=== PATIENT | male | born 1980 | race Caucasian/White ===

== ENCOUNTER 2017-04-22 16:18 | Emergency (ER) | payer MEDICAID ==
[~2017-04-22] VITALS: Ht 167.6 cm; Wt 118.8 kg
[2017-04-22 16:32] VITALS: BP 115/62
[2017-04-22] MEDS ORDERED: KETOROLAC 60 MG/2 ML VIAL IM ONE (17:50)
[2017-04-22 18:12] VITALS: BP 115/62
--- NOTE | 2017-04-22 18:12 | NUR ---
Patient discharged with v/s stable. Written and verbal after care instructions given and explained. Patient alert, oriented and verbalized understanding of instructions. Ambulatory with steady gait. All questions addressed prior to discharge. ID band removed. Patient advised to follow up with PMD. Rx of NAPROSYN given. Patient educated on indication of medication including possible reaction and side effects. Opportunity to ask questions provided and answered. SPOUSE PRESENT PT'S RIDE.
== END 2017-04-22 18:12 | disposition home or self-care (01) ==
LOC: MED 16:18
DX: M54.5 Low back pain (principal)
CPT/HCPCS: 96372; 99283; J1885

== ENCOUNTER 2018-06-21 14:55 | Emergency (ER) | payer MEDICAID ==
[~2018-06-21] VITALS: Ht 165.1 cm; Wt 123.8 kg
[2018-06-21 15:04] VITALS: BP 118/69
--- NOTE | 2018-06-21 15:10 | NUR ---
PT AMB TO RESTROOM FOR URINE SAMPLE, WILL BE SENT TO LOBBY AFTER.
--- NOTE | 2018-06-21 15:52 | NUR ---
PT AMBULATED STEADILY TO BED 11
--- NOTE | 2018-06-21 16:00 | NUR ---
BIB SELF. PATIENT PRESENTS TO ED WITH LOWER ABD PAIN THAT STARTED 7 DAYS AGO. PT STATES HER LAST BM WAS THIS MORNING, FORMED. DENIES N/V/D; SKIN IS PINK/WARM/DRY; AAOX4 WITH EVEN AND STEADY GAIT; LUNGS CLEAR BL; HR EVEN AND REGULAR; PT DENIES ANY FEVER, CP, SOB, OR COUGH AT THIS TIME; PATIENT STATES PAIN OF 10/10 AT THIS TIME; VSS; PATIENT POSITIONED FOR COMFORT; HOB ELEVATED; BEDRAILS UP X2; BED DOWN. ER MD MADE AWARE OF PT STATUS.
[2018-06-21] MEDS ORDERED: NACL 0.9% 1,000 ML IV SCH (16:19)
[2018-06-21] MEDS ORDERED: ONDANSETRON 4 MG/2 ML VIAL IVP ONE (16:20)
[2018-06-21] MEDS ORDERED: MORPHINE SULFATE 4 MG/ML SYR IVP ONE (16:20)
[2018-06-21 17:32] LABS: BASOPHILS # (AUTO) 0.1 K/uL (0.00-0.22); BASOPHILS % (AUTO) 0.6 % (0.0-2.0); EOSINOPHILS # (AUTO) 0.5 K/uL (0-0.4); EOSINOPHILS % (AUTO) 3.3 % (0.0-4.0); HEMATOCRIT 42.8 % (36-48); HEMOGLOBIN 14.1 g/dL (12.0-16.0); LYMPHOCYTES % (AUTO) 27.1 % (20.5-51.1); MEAN CORPUSCULAR HEMOGLOBIN 30 pg (27-31); MEAN CORPUSCULAR HGB CONC 33 g/dL (33-37); MONOCYTES % (AUTO) 6.9 % (1.7-9.3); NEUTROPHILS # (AUTO) 9.1 K/uL (1.8-7.7); NEUTROPHILS % (AUTO) 62.1 % (42.2-75.2); PLATELET COUNT (AUTO) 256 K/uL (140-450); RED BLOOD CELL COUNT(AUTO) 4.75 MIL/uL (4.20-5.40); RED CELL DISTRIBUTION WIDTH 13.3 % (11.6-13.7); WHITE BLOOD COUNT (AUTO) 14.7 K/uL (4.8-10.8)
[2018-06-21 17:47] LABS: ALBUMIN 3.1 g/dL (3.4-5.0); CARBON DIOXIDE 27.9 mmol/L (21-32); POTASSIUM 3.9 mmol/L (3.5-5.1); TOTAL BILIRUBIN 0.3 mg/dL (0.0-1.0)
[2018-06-21 17:48] LABS: APPEARANCE,URINE CLEAR (CLEAR)
[2018-06-21 17:49] LABS: BILIRUBIN,URINE NEGATIVE (NEGATIVE); BLOOD, URINE 1+ (NEGATIVE); COLOR,URINE STRAW (YELLOW); LEUKOCYTE ESTERASE ,URINE NEGATIVE (NEGATIVE); NITRITE, URINE NEGATIVE (NEGATIVE); UGLUCOSE NEGATIVE (NEGATIVE)
[2018-06-21 18:20] LABS: RBC,URINE 0-5 (RARE) /HPF (0-5); WBC,URINE NONE SEEN /HPF (0-5)
--- NOTE | 2018-06-21 19:12 | NUR ---
RETURNED FROM XRAY VIA
--- NOTE | 2018-06-21 19:25 | NUR ---
REPORT RECIEVED FROM JAI BLEVINS
[2018-06-21 20:51] VITALS: BP 113/69
== END 2018-06-21 20:51 | disposition home or self-care (01) ==
LOC: EDSEX 14:55 → MED 14:55
DX: R10.30 Lower abdominal pain, unspecified (principal); Z90.49 Acquired absence of other specified parts of digestive tract; Z90.89 Acquired absence of other organs
CPT/HCPCS: 36415; 74176; 80053; 81001; 81025; 83690; 85025; 96374; 96375; 99285; J2270; J2405; J7030

== ENCOUNTER 2018-06-29 18:21 | Emergency (ER) | payer MEDICAID ==
[~2018-06-29] VITALS: Ht 167.6 cm; Wt 124.7 kg
[2018-06-29 18:32] VITALS: BP 123/82
[2018-06-29] MEDS ORDERED: KETOROLAC 30 MG/ML VIAL IVP ONE (19:15)
[2018-06-29 19:38] LABS: BASOPHILS # (AUTO) 0.1 K/uL (0.00-0.22); BASOPHILS % (AUTO) 0.7 % (0.0-2.0); EOSINOPHILS # (AUTO) 0.4 K/uL (0-0.4); EOSINOPHILS % (AUTO) 2.8 % (0.0-4.0); HEMATOCRIT 46.2 % (36-48); HEMOGLOBIN 15.4 g/dL (12.0-16.0); LYMPHOCYTES # (AUTO) 4.2 K/uL (2.5-16.5); LYMPHOCYTES % (AUTO) 26.6 % (20.5-51.1); MEAN CORPUSCULAR HEMOGLOBIN 30 pg (27-31); MEAN CORPUSCULAR HGB CONC 33 g/dL (33-37); MEAN CORPUSCULAR VOLUME 89.1 fL (80-94); MONOCYTES # (AUTO) 1.1 K/uL (0.8-1.0); MONOCYTES % (AUTO) 6.8 % (1.7-9.3); NEUTROPHILS % (AUTO) 63.1 % (42.2-75.2); PLATELET COUNT (AUTO) 346 K/uL (140-450); RED BLOOD CELL COUNT(AUTO) 5.19 MIL/uL (4.20-5.40); RED CELL DISTRIBUTION WIDTH 13.2 % (11.6-13.7); WHITE BLOOD COUNT (AUTO) 15.9 K/uL (4.8-10.8)
[2018-06-29 19:55] LABS: ANION GAP 10.6 (8-16); CARBON DIOXIDE 28.4 mmol/L (21-32); CREATININE 0.8 mg/dL (0.6-1.3)
[2018-06-29 20:03] LABS: ALBUMIN 3.6 g/dL (3.4-5.0); TOTAL BILIRUBIN 0.4 mg/dL (0.0-1.0)
[2018-06-29 20:43] LABS: APPEARANCE,URINE CLEAR (CLEAR); COLOR,URINE YELLOW (YELLOW)
[2018-06-29 20:44] LABS: BILIRUBIN,URINE NEGATIVE (NEGATIVE); BLOOD, URINE NEGATIVE (NEGATIVE); LEUKOCYTE ESTERASE ,URINE NEGATIVE (NEGATIVE); NITRITE, URINE NEGATIVE (NEGATIVE); UGLUCOSE NEGATIVE (NEGATIVE)
[2018-06-29 21:23] VITALS: BP 110/82
== END 2018-06-29 21:19 | disposition home or self-care (01) ==
LOC: MED 18:21
DX: R10.30 Lower abdominal pain, unspecified (principal); Z90.89 Acquired absence of other organs
CPT/HCPCS: 36415; 76856; 80053; 81003; 81025; 83690; 85025; 96374; 99285; J1885; Q0092

== ENCOUNTER 2020-05-19 16:13 | Inpatient (IN) | payer MEDICAID, SELFPAY ==
[~2020-05-19] VITALS: Ht 167.6 cm; Wt 116.1 kg
[2020-05-19 16:15] VITALS: BP 146/81
--- NOTE | 2020-05-19 16:27 | NUR ---
PT AMB TO BED 4.
--- NOTE | 2020-05-19 16:30 | NUR ---
39 YEAR OLD FEMALE COMPLAINS OF NAUSEA, VOMITTING, AND DIARRHEA THAT STARTED TWO DAYS AGO. PT DENIES ANY NAUSEA AT THIS TIME, BUT STATES SHE WAS IN THE MORNING. PT AOX4, BREATHING EVEN AND UNLABORED, SKIN WARM AND DRY. BED IN LOWEST POSITION, LOCKED, BED RAIL UPX1. PMH - DENIES ALLERGIES - NKA
[2020-05-19] MEDS ORDERED: NACL 0.9% 1,000 ML IV ONE ×2 (16:35→19:10)
[2020-05-19 17:00] LABS: BASOPHILS % (AUTO) 0.2 % (0.0-2.0); HEMATOCRIT 41.6 % (36-48); HEMOGLOBIN 14.1 g/dL (12.0-16.0); LYMPHOCYTES # (AUTO) 1.2 K/uL (2.5-16.5); LYMPHOCYTES % (AUTO) 7.3 % (20.5-51.1); MEAN CORPUSCULAR HEMOGLOBIN 30 pg (27-31); MEAN CORPUSCULAR HGB CONC 34 g/dL (33-37); MEAN CORPUSCULAR VOLUME 89.8 fL (80-94); MONOCYTES # (AUTO) 1.2 K/uL (0.8-1.0); MONOCYTES % (AUTO) 6.9 % (1.7-9.3); NEUTROPHILS # (AUTO) 14.6 K/uL (1.8-7.7); NEUTROPHILS % (AUTO) 85.6 % (42.2-75.2); PLATELET COUNT (AUTO) 278 K/uL (140-450); RED BLOOD CELL COUNT(AUTO) 4.63 MIL/uL (4.20-5.40); RED CELL DISTRIBUTION WIDTH 13.5 % (11.6-13.7); WHITE BLOOD COUNT (AUTO) 17.1 K/uL (4.8-10.8)
--- NOTE | 2020-05-19 17:04 | NUR ---
COVID SWAB SENT TO LAB
[2020-05-19 17:34] LABS: ALBUMIN 3.4 g/dL (3.4-5.0); ANION GAP 16.3 (8-16); CARBON DIOXIDE 21.5 mmol/L (21-32); POTASSIUM 3.8 mmol/L (3.5-5.1); TOTAL BILIRUBIN 0.6 mg/dL (0.0-1.0)
[2020-05-19 17:46] LABS: BILIRUBIN,URINE NEGATIVE (NEGATIVE); BLOOD, URINE 3+ (NEGATIVE); COLOR,URINE YELLOW (YELLOW); LEUKOCYTE ESTERASE ,URINE TRACE (NEGATIVE); NITRITE, URINE NEGATIVE (NEGATIVE); UGLUCOSE NEGATIVE (NEGATIVE)
[2020-05-19 17:52] LABS: APPEARANCE,URINE CLOUDY (CLEAR)
[2020-05-19 18:12] LABS: RBC,URINE 0-5 /HPF (0-5)
[2020-05-19 18:13] LABS: URINE AMORPHOUS URATE 3+ /HPF (None Seen); WBC,URINE NONE SEEN /HPF (0-5)
--- NOTE | 2020-05-19 18:53 | NUR ---
PT ALERT AND AWAKE, BREATHING EVEN AND UNLABORED. NO DISTRESS NOTED.
[2020-05-19] MEDS ORDERED: PIPERACILLIN/TAZOBACTAM 3.375 GM in DEXTROSE 5% 50 ML IV ONE (19:10)
--- NOTE | 2020-05-19 19:27 | NUR ---
REPORT GIVEN TO TONIA VERGARA, TRANSFER OF CARE AT THIS TIME
--- NOTE | 2020-05-19 19:28 | NUR ---
RECEIVED REPORT FROM JAK VERGARA
[2020-05-19] MEDS ORDERED: KETOROLAC 30 MG/ML VIAL ONE (20:59)
[2020-05-19] MEDS ORDERED: PIPERACILLIN/TAZOBACTAM 3.375 GM VIAL IV ONE (21:20)
[2020-05-20] MEDS ORDERED: HYDROcodone/APAP 5/325 MG 1 TAB TAB ONE (04:30)
--- NOTE | 2020-05-20 05:30 | NUR ---
Partschannel NUTRITION COUNSELOR RETURNED FROM DOWNTIME AT THIS TIME. PLEASE SEE OTHER DOCUMENTATION.
--- NOTE | 2020-05-20 07:29 | NUR ---
ENDORSED TO DAY SHIFT NURSE FOR CONTINUITY OF CARE.
--- NOTE | 2020-05-20 07:30 | NUR ---
Received bedside report from pm nurse [place]. Pt ambulating to restroom with steady gait, able to maneuver IV pole with good safety awareness, no signs of distress. Right hand IV 22G intact with ongoing NS @ 80ml/hr.
[2020-05-20 08:00] VITALS: BP 96/48
[2020-05-20] MEDS ORDERED: HYDROcodone/APAP 5/325 MG 1 TAB TAB PO PRN (08:45)
[2020-05-20] MEDS ORDERED: ACETAMINOPHEN 325 MG TAB PO PRN (08:50)
[2020-05-20] MEDS ORDERED: ONDANSETRON 4 MG/2 ML VIAL IM/IVP PRN (08:50)
[2020-05-20] MEDS ORDERED: DOCUSATE SODIUM 100 MG GELCAP PO PRN (08:50)
[2020-05-20] MEDS ORDERED: POTASSIUM CHLORIDE 10 MEQ TABER PO PRN (08:50)
[2020-05-20] MEDS ORDERED: ZOLPIDEM 5 MG TAB PO PRN (08:50)
[2020-05-20] MEDS ORDERED: guaiFENesin DM 200/20 MG-10 ML 10 ML UDC PO PRN (08:50)
--- NOTE | 2020-05-20 08:56 | NUR ---
Clarified with [facility] retail pharmacy technician, that Zosyn was dispensed last night @ 2200 in ED. ED staff Fritz notified.
[2020-05-20 09:32] LABS: BASOPHILS % (AUTO) 0.2 % (0.0-2.0); EOSINOPHILS % (AUTO) 0.2 % (0.0-4.0); HEMOGLOBIN 13.4 g/dL (12.0-16.0); LYMPHOCYTES # (AUTO) 1.8 K/uL (2.5-16.5); LYMPHOCYTES % (AUTO) 12.1 % (20.5-51.1); MEAN CORPUSCULAR HEMOGLOBIN 30 pg (27-31); MEAN CORPUSCULAR HGB CONC 34 g/dL (33-37); MONOCYTES # (AUTO) 1.4 K/uL (0.8-1.0); MONOCYTES % (AUTO) 8.9 % (1.7-9.3); NEUTROPHILS % (AUTO) 78.6 % (42.2-75.2); PLATELET COUNT (AUTO) 258 K/uL (140-450); RED BLOOD CELL COUNT(AUTO) 4.44 MIL/uL (4.20-5.40); RED CELL DISTRIBUTION WIDTH 13.5 % (11.6-13.7); WHITE BLOOD COUNT (AUTO) 15.2 K/uL (4.8-10.8)
[2020-05-20] MEDS: PANTOPRAZOLE 40 MG TABEC PO SCH (09:42)
--- NOTE | 2020-05-20 10:17 | NUR ---
PATIENT HAS BEEN SCREENED AND CATEGORIZED MODERATE NUTRITION RISK. PATIENT WILL BE SEEN WITHIN 3-5 DAYS OF ADMISSION. 05/22/20 05/24/[address]
[2020-05-20 10:33] LABS: ALBUMIN 2.8 g/dL (3.4-5.0); ANION GAP 13.8 (8-16); CARBON DIOXIDE 22.7 mmol/L (21-32); CREATININE 0.8 mg/dL (0.6-1.3); POTASSIUM 3.5 mmol/L (3.5-5.1); TOTAL BILIRUBIN 0.5 mg/dL (0.0-1.0)
[2020-05-20 10:45] LABS: CHOL/HDL RATIO 3.1 (1-4.5); MAGNESIUM 1.8 mg/dL (1.8-2.4); PHOSPHORUS 2.4 mg/dL (2.5-4.9)
[2020-05-20 10:46] LABS: FREE T4 (FREE THYROXINE) 1.2 ng/dL (0.76-1.46); THYROID STIMULATING HORMONE 2.59 uIU/mL (0.34-3.74)
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
--- NOTE | 2020-05-20 11:36 | NUR ---
DC PLANNIN YRS OLD FEMALE PATIENT WAS ADMITTED FROM HOME WITH A DX OF CHEST PAIN . PATIENT HAS NO MEDICAL HISTORY. CXR SHOWED NORMAL. CT ABD/PELVIS SHOWED PROMINENT MESENTERIC LYMPH NODES WHICH IS LIKELY RELATED TO INFECTIOUS PROCESS. STARTED IVF, IV ABX ZOSYN. RAPID COVID TEST NEGATIVE. DC PLANING TO GO HOME WHEN STABLE CM TO FOLLOW.
[2020-05-20 12:00] VITALS: BP 134/63
[2020-05-20 12:05] LABS: ANION GAP 13.3 (8-16); CARBON DIOXIDE 21.3 mmol/L (21-32); CREATININE 0.8 mg/dL (0.6-1.3); POTASSIUM 3.6 mmol/L (3.5-5.1)
[2020-05-20] MEDS: NACL 0.9% 1,000 ML IV SCH (12:34)
[2020-05-20] MEDS: HYDROcodone/APAP 7.5/325 MG 1 TAB PO PRN ×2 (13:32→19:51)
[2020-05-20] MEDS: PIPERACILLIN/TAZOBACTAM 3.375 GM in DEXTROSE 5% 50 ML IV SCH ×2 (13:32→20:17)
[2020-05-20 16:00] VITALS: BP 104/54
--- NOTE | 2020-05-20 19:15 | NUR ---
RECEIVED BEDSIDE REPORT FROM DAY SHIFT NURSE. PT IN BED RESTING. PT AAOX4, AMBULATORY, AND ABLE TO MAKE NEEDS KNOWN. RESPIRATIONS EVEN AND UNLABORED TO ROOM AIR. SKIN IS WARM, DRY, AND INTACT. ABDOMEN IS SOFT TO TOUCH. IV ACCESS ON LEFT HAND G22 PATENT AND INTACT. IVF INFUSING WELL. PT VERBALIZED TOLERABLE PAIN LEVEL AT THIS TIME. NO REQUESTS MADE. POC DISCUSSED. PT VERBALIZED UNDERSTANDING. SAFETY MEASURES IN PLACE. CALL LIGHT WITHIN REACH. WILL CONTINUE TO MONITOR.
--- NOTE | 2020-05-20 19:51 | NUR ---
PT VERBALIZED ABDOMINAL PAIN 04/14. PRN PAIN MEDICATION GIVEN ORDERED. WILL CONTINUE TO MONITOR.
[2020-05-20 20:00] VITALS: BP 97/46
--- NOTE | 2020-05-20 20:17 | NUR ---
VITAL SIGNS STABLE. SCHEDULED MEDS GIVEN. PT VERBALIZED TOLERABLE PAIN AT THIS TIME. NO REQUESTS MADE. CALL LIGHT WITHIN REACH. WILL CONTINUE TO MONITOR.
[2020-05-20 20:56] LABS: BARBITURATE, URINE NEGATIVE ng/ml (NEG <=200); BENZODIAZEPINE, URINE NEGATIVE ng/mL (NEG <=200); CANNABINOID, URINE NEGATIVE ng/mL (NEG <=50); COCAINE, URINE NEGATIVE ng/mL (NEG <=300); OPIATE, URINE NEGATIVE ng/mL (NEG <=2000); PHENCYCLIDINE SCREEN,URINE NEGATIVE ng/mL (NEG <=25)
--- NOTE | 2020-05-20 22:05 | NUR ---
ROUNDS MADE. PT IN BED WATCHING TV. APPLE JUICE PROVIDED PER PT REQUEST. PT DENIES ANY PAIN OR DISCOMFORT AT THIS TIME. PT KEPT SAFE AND COMFORTABLE. CALL LIGHT WITHIN REACH. WILL CONTINUE TO MONITOR.
[2020-05-21] VITALS: BP 108/60
--- NOTE | 2020-05-21 00:08 | NUR ---
VITAL SIGNS STABLE. PT NOT IN DISTRESS. DENIES ANY PAIN OR DISCOMFORT AT THIS TIME. NO REQUESTS MADE. PT KEPT COMFORTABLE. SAFETY MEASURES IN PLACE. CALL LIGHT WITHIN REACH. WILL CONTINUE TO MONITOR.
[2020-05-21] MEDS: NACL 0.9% 1,000 ML IV SCH (00:20)
--- NOTE | 2020-05-21 01:40 | NUR ---
PT JUST GOT OUT OF RESTROOM. VERBALIZED PRESENCE OF DIARRHEA STILL. NEW IV BAG HUNG. PT NOT IN PAIN OF THIS MOMENT. PT KEPT COMFORTABLE. NO REQUESTS MADE. CALL LIGHT WITHIN REACH. WILL CONTINUE TO MONITOR.
[2020-05-21 04:00] VITALS: BP 103/64
--- NOTE | 2020-05-21 04:07 | NUR ---
VITAL SIGNS TAKEN. PT IN BED RESTING. DENIES ANY PAIN OR DISCOMFORT. PT NOT IN DISTRESS. NO REQUESTS MADE. IVF INFUSING WELL. PT KEPT COMFORTABLE. SAFETY MEASURES IN PLACE. CALL LIGHT WITHIN REACH. WILL CONTINUE TO MONITOR.
[2020-05-21] MEDS: PIPERACILLIN/TAZOBACTAM 3.375 GM in DEXTROSE 5% 50 ML IV SCH (04:59)
[2020-05-21 06:56] LABS: BASOPHILS % (AUTO) 0.1 % (0.0-2.0); EOSINOPHILS # (AUTO) 0.2 K/uL (0-0.4); EOSINOPHILS % (AUTO) 2.1 % (0.0-4.0); HEMATOCRIT 37.2 % (36-48); HEMOGLOBIN 12.5 g/dL (12.0-16.0); LYMPHOCYTES # (AUTO) 2.4 K/uL (2.5-16.5); LYMPHOCYTES % (AUTO) 20.5 % (20.5-51.1); MEAN CORPUSCULAR HEMOGLOBIN 30 pg (27-31); MEAN CORPUSCULAR HGB CONC 34 g/dL (33-37); MEAN CORPUSCULAR VOLUME 89.7 fL (80-94); MONOCYTES # (AUTO) 1.2 K/uL (0.8-1.0); MONOCYTES % (AUTO) 10.4 % (1.7-9.3); NEUTROPHILS # (AUTO) 7.8 K/uL (1.8-7.7); NEUTROPHILS % (AUTO) 66.9 % (42.2-75.2); PLATELET COUNT (AUTO) 250 K/uL (140-450); RED BLOOD CELL COUNT(AUTO) 4.15 MIL/uL (4.20-5.40); RED CELL DISTRIBUTION WIDTH 13.3 % (11.6-13.7); WHITE BLOOD COUNT (AUTO) 11.6 K/uL (4.8-10.8)
[2020-05-21 07:08] LABS: ANION GAP 13.2 (8-16); CARBON DIOXIDE 21.5 mmol/L (21-32); CREATININE 0.7 mg/dL (0.6-1.3); POTASSIUM 3.7 mmol/L (3.5-5.1)
--- NOTE | 2020-05-21 07:11 | NUR ---
ENDORSED TO DAY SHIFT NURSE FOR CONTINUITY OF CARE.
--- NOTE | 2020-05-21 07:12 | NUR ---
RECEIVED REPORT FROM ENVIRONMENTAL SERVICES SUPERVISOR NURSE FOR CONTINUITY OF CARE. PATIENT RESTING IN BED, AWAKE, AAOX 4, DENIES PAIN AT THIS TIME. RESPIRATORY EVEN AND UNLABORED. SKIN INTACT,WARM AND DRY, IV SITE LEFT HAND 22 G, INFUSING NS @80 CC/HR. CONTACT ISOLATION FOR PENDING C DIFF. PLAN OF CARE DISCUSSED. SAFETY MEASURES IN PLACE, WILL CONTINUE TO MONITOR.
[2020-05-21 08:00] VITALS: BP 110/56
[2020-05-21 08:08] LABS: T4 (THYROXINE) 7.5 ug/dL (4.5-12.0)
[2020-05-21] MEDS: PANTOPRAZOLE 40 MG TABEC PO SCH (08:17)
--- NOTE | 2020-05-21 08:21 | NUR ---
SCHEDULED MORNING MEDICATION ADMINISTERED, EDUCATION PROVIDED, PATIENT TOLERATED WELL. PATIENT DENIED PAIN. SAFETY MEASURES IN PLACE, WILL CONTINUE TO MONITOR.
[2020-05-21] MEDS ORDERED: METR250T2 PO ×2 (10:45→11:04)
== END 2020-05-21 13:15 | disposition home or self-care (01) | DRG 720 ==
LOC: MED 16:13 → MTU 20:55
PROVIDERS: ADMIT Family Medicine; ATTEND Family Medicine
DX: A41.9 Sepsis, unspecified organism (principal); K52.9 Noninfective gastroenteritis and colitis, unspecified; R31.9 Hematuria, unspecified; K43.9 Ventral hernia without obstruction or gangrene; E66.9 Obesity, unspecified; K29.70 Gastritis, unspecified, without bleeding; K76.0 Fatty (change of) liver, not elsewhere classified; F43.9 Reaction to severe stress, unspecified; Z20.828 Contact with and (suspected) exposure to other viral communicable diseases; Z68.41 Body mass index [BMI] 40.0-44.9, adult
CPT/HCPCS: 36415; 71045; 76770; 80048; 80053; 80305; 81001; 81025; 82150; 83036; 83605; 83690; 83735; 83880; 84100; 84436; 84439; 84443; 84479; 84484; 85025; 85610; 85730; 87040; 87045; 87070; 87081; 87086; 96360; 99285; J1885; J2543; J7030; J7060; Q0092

== ENCOUNTER 2021-01-06 08:04 | Emergency (ER) | payer MEDICAID, SELFPAY ==
[~2021-01-06] VITALS: Ht 160 cm; Wt 122.0 kg
[~2021-01-06 08:04] MED LIST: METR-520 PO
[2021-01-06 08:07] VITALS: BP 148/83
--- NOTE | 2021-01-06 08:09 | NUR ---
PATIENT AMBULATED TO BED 12 WITH STEADY GAIT
--- NOTE | 2021-01-06 08:20 | NUR ---
40 Y/O F BIB SELF FROM HOME, PATIENT PRESENTS TO ED WITH L ANKLE PAIN AFTER SHE FELL 3 DAYS AGO. PT DENIES ANY HEAD INJURY DURING FALL. PT STATES PAIN INCREASES WHEN SHE SITS AND WALKS. DENIES N/V/D; SKIN IS PINK/WARM/DRY; AAOX4 WITH EVEN AND STEADY GAIT; LUNGS CLEAR BL; HR EVEN AND REGULAR; PT DENIES ANY FEVER, CP, SOB, OR COUGH AT THIS TIME; PATIENT STATES PAIN OF 7/10 AT THIS TIME; VSS; PATIENT POSITIONED FOR COMFORT; HOB ELEVATED; BEDRAILS UP X2; BED DOWN. ER MD MADE AWARE OF PT STATUS. PMH: NONE NKA MEDS: NONE
--- NOTE | 2021-01-06 08:25 | NUR ---
XRAY AT BEDSIDE.
[2021-01-06] MEDS: IBUPROFEN 800 MG TAB PO ONE (08:30)
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
[2021-01-06 09:23] VITALS: BP 148/83
--- NOTE | 2021-01-06 09:24 | NUR ---
Patient discharged with v/s stable. Written and verbal after care instructions given and explained. Patient verbalized understanding. Ambulatory with steady gait. All questions addressed prior to discharge. Advised to follow up with PMD. AMBULATORY WITH CRUTCHES
== END 2021-01-06 09:24 | disposition home or self-care (01) ==
LOC: MED 08:04
DX: S93.401A Sprain of unspecified ligament of right ankle, initial encounter (principal); Z79.899 Other long term (current) drug therapy; X58.XXXA Exposure to other specified factors, initial encounter; Y93.89 Activity, other specified; Y92.89 Other specified places as the place of occurrence of the external cause; Y99.8 Other external cause status
CPT/HCPCS: 73590; 73610; 73630; 99284

== ENCOUNTER 2021-03-07 15:31 | Emergency (ER) | payer MEDICAID ==
[~2021-03-07] VITALS: Ht 162.6 cm; Wt 122.0 kg
[2021-03-07 15:41] VITALS: BP 121/79
--- NOTE | 2021-03-07 15:45 | NUR ---
Patient ambulated to bed 11. RN evaluating the patient at bedside.
--- NOTE | 2021-03-07 15:47 | NUR ---
SHIKHA Bolaños is evaluating the patient at bedside.
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
[2021-03-07] MEDS ORDERED: KETOROLAC 30 MG/ML VIAL IM ONE (15:55)
[2021-03-07] MEDS ORDERED: IBUP-1842 PO (16:50)
--- NOTE | 2021-03-07 17:42 | NUR ---
PLACE LEFT WRIST IMMOBILIZER ON PATIENT. PATIENT TOLERATED WELL.
[2021-03-07 17:48] VITALS: BP 121/79
== END 2021-03-07 17:48 | disposition home or self-care (01) ==
LOC: MED 15:31
DX: S69.92XA Unspecified injury of left wrist, hand and finger(s), initial encounter (principal); Z79.899 Other long term (current) drug therapy; Z90.49 Acquired absence of other specified parts of digestive tract; Z98.890 Other specified postprocedural states; X58.XXXA Exposure to other specified factors, initial encounter; Y93.89 Activity, other specified; Y92.89 Other specified places as the place of occurrence of the external cause; Y99.8 Other external cause status
CPT/HCPCS: 29125; 73110; 96372; 99283; J1885

== ENCOUNTER 2021-12-29 21:40 | Emergency (ER) | payer MEDICAID ==
[~2021-12-29] VITALS: Ht 165.1 cm; Wt 106.1 kg
[~2021-12-29 21:40] MED LIST changes: +IBUP-1842 PO
[2021-12-29 21:54] VITALS: BP 123/74
--- NOTE | 2021-12-29 22:45 | NUR ---
PT TAKEN TO RADIOLOGY
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
[2021-12-29] MEDS ORDERED: ACET-1182 PO (23:24)
[2021-12-29 23:38] VITALS: BP 123/74
--- NOTE | 2021-12-29 23:40 | NUR ---
Patient discharged with v/s stable. Written and verbal after care instructions given and explained. Patient alert, oriented and verbalized understanding of instructions. Ambulatory with steady gait. All questions addressed prior to discharge. ID band removed. Patient advised to follow up with PMD. Rx of ACETAMINOPHEN given. Patient educated on indication of medication including possible reaction and side effects. Opportunity to ask questions provided and answered. A/OX4, VSS, AMBULATORY, UNLABORE BREATHING, AND CALM DEMEANOR.
== END 2021-12-29 23:40 | disposition home or self-care (01) ==
LOC: MED 21:40
DX: S00.03XA Contusion of scalp, initial encounter (principal); M54.2 Cervicalgia; Z98.890 Other specified postprocedural states; Z90.49 Acquired absence of other specified parts of digestive tract; Z79.899 Other long term (current) drug therapy; Z79.1 Long term (current) use of non-steroidal anti-inflammatories (NSAID); Z79.2 Long term (current) use of antibiotics; W01.0XXA Fall on same level from slipping, tripping and stumbling without subsequent striking against object, initial encounter; Y92.89 Other specified places as the place of occurrence of the external cause; Y93.89 Activity, other specified; Y99.8 Other external cause status
CPT/HCPCS: 70450; 99284

== ENCOUNTER 2022-05-31 16:32 | Emergency (ER) | payer MEDICAID ==
[~2022-05-31] VITALS: Ht 165.1 cm; Wt 123.8 kg
[~2022-05-31 16:32] MED LIST changes: +ACET-1182 PO
[2022-05-31 17:05] VITALS: BP 149/96
--- NOTE | 2022-05-31 17:12 | NUR ---
BIB SELF C/O 10/10 LOWER ABDOMINAL PAIN, DIZZINESS, HEADACHE X 3 DAYS.
[2022-05-31 17:51] LABS: BASOPHILS # (AUTO) 0.1 K/uL (0.00-0.22); BASOPHILS % (AUTO) 1.1 % (0.0-2.0); EOSINOPHILS # (AUTO) 0.2 K/uL (0-0.4); HEMOGLOBIN 14.8 g/dL (12.0-16.0); LYMPHOCYTES # (AUTO) 3.3 K/uL (2.5-16.5); LYMPHOCYTES % (AUTO) 30.6 % (20.5-51.1); MEAN CORPUSCULAR HEMOGLOBIN 30 pg (27-31); MEAN CORPUSCULAR HGB CONC 34 g/dL (33-37); MEAN CORPUSCULAR VOLUME 90.1 fL (80-94); MONOCYTES # (AUTO) 0.9 K/uL (0.8-1.0); MONOCYTES % (AUTO) 8.5 % (1.7-9.3); NEUTROPHILS # (AUTO) 6.2 K/uL (1.8-7.7); NEUTROPHILS % (AUTO) 57.8 % (42.2-75.2); PLATELET COUNT (AUTO) 308 K/uL (140-450); RED BLOOD CELL COUNT(AUTO) 4.88 MIL/uL (4.20-5.40); RED CELL DISTRIBUTION WIDTH 13.4 % (11.6-13.7); WHITE BLOOD COUNT (AUTO) 10.8 K/uL (4.8-10.8)
[2022-05-31 18:20] LABS: ALBUMIN 3.3 g/dL (3.4-5.0); ANION GAP 15.4 (8-16); CARBON DIOXIDE 23.5 mmol/L (21-32); CREATININE 0.7 mg/dL (0.6-1.3); POTASSIUM 3.9 mmol/L (3.5-5.1); TOTAL BILIRUBIN 0.2 mg/dL (0.0-1.0)
--- NOTE | 2022-05-31 19:29 | NUR ---
PT TAKEN TO BED 4
--- NOTE | 2022-05-31 19:36 | NUR ---
PT AMBULATED TO ED 4 FROM TRIAGE, PT C/O LOWER ABD PAIN WITH DIZZINESS, PT DENIES ANY MEDICAL HISTORY. WAITING FOR EVALUATION.
--- NOTE | 2022-05-31 20:12 | NUR ---
Dr. Ruano examining patient.
[2022-05-31] MEDS ORDERED: KETOROLAC 60 MG/2 ML VIAL IM ONE (20:20)
[2022-05-31] MEDS ORDERED: ACET-8386 PO (20:28)
[2022-05-31] MEDS ORDERED: IBUP-2213 PO (20:28)
[2022-05-31 20:49] VITALS: BP 123/70
--- NOTE | 2022-05-31 20:50 | NUR ---
Patient discharged with v/s stable. Written and verbal after care instructions given and explained. Patient verbalized understanding. Ambulatory with steady gait. All questions addressed prior to discharge. Advised to follow up with PMD.
== END 2022-05-31 20:50 | disposition home or self-care (01) ==
LOC: MED 16:32
DX: N83.202 Unspecified ovarian cyst, left side (principal)
CPT/HCPCS: 36415; 74176; 80053; 81002; 81025; 82150; 85025; 96372; 99284; J1885

== ENCOUNTER 2023-02-08 15:37 | Emergency (ER) | payer MEDICAID ==
[~2023-02-08] VITALS: Ht 162.6 cm; Wt 118.4 kg
[~2023-02-08 15:37] MED LIST changes: +ACET-8905 PO; +IBUP-2213 PO
[2023-02-08 15:49] VITALS: BP 136/89
[2023-02-08] MEDS ORDERED: KETOROLAC 30 MG/ML VIAL IM ONE (16:15)
[2023-02-08] MEDS ORDERED: ACETAMINOPHEN EXTRA STRENGTH 500 MG TAB PO ONE (16:15)
[2023-02-08] MEDS ORDERED: ACET-10509 PO (18:28)
[2023-02-08] MEDS ORDERED: IBUP-2218 PO (18:28)
[2023-02-08] MEDS ORDERED: MUC600 PO (18:28)
--- NOTE | 2023-02-08 18:35 | NUR ---
SWABS COLLECTED AND TAKEN TO LAB
[2023-02-08 18:37] VITALS: BP 136/89
--- NOTE | 2023-02-08 18:37 | NUR ---
Patient discharged with v/s stable. Written and verbal after care instructions given and explained. Patient alert, oriented and verbalized understanding of instructions. Ambulatory with steady gait. All questions addressed prior to discharge. ID band removed. Patient advised to follow up with PMD. Rx of TYLENOL,IBUPROFEN, AND MUCINEX given. Patient educated on indication of medication including possible reaction and side effects. Opportunity to ask questions provided and answered.
[2023-02-08] MEDS ORDERED: TAM75 PO (19:36)
== END 2023-02-08 18:37 | disposition home or self-care (01) ==
LOC: MED 15:37
DX: J10.1 Influenza due to other identified influenza virus with other respiratory manifestations (principal); Z20.822 Contact with and (suspected) exposure to COVID-19; Z79.899 Other long term (current) drug therapy; Z90.49 Acquired absence of other specified parts of digestive tract
CPT/HCPCS: 87426; 87804; 96372; 99283; J1885

== ENCOUNTER 2023-09-19 11:51 | Emergency (ER) | payer MEDICAID ==
[~2023-09-19] VITALS: Ht 167.6 cm; Wt 81.6 kg
[~2023-09-19 11:51] MED LIST changes: +ACET-10509 PO; +IBUP-2218 PO; +MUC600 PO; +TAM75 PO
[2023-09-19 12:12] VITALS: BP 132/76; PULSE 89; RESP 18; TEMP 98; O2SAT 98
[2023-09-19 12:39] LABS: APPEARANCE,URINE SL CLOUDY (CLEAR); BILIRUBIN,URINE NEGATIVE (NEGATIVE); BLOOD, URINE 1+ (NEGATIVE); COLOR,URINE YELLOW (YELLOW); LEUKOCYTE ESTERASE ,URINE TRACE (NEGATIVE); NITRITE, URINE NEGATIVE (NEGATIVE); PROTEIN,URINE NEGATIVE (NEGATIVE); UGLUCOSE NEGATIVE (NEGATIVE); UROBILINOGEN,URINE 0.2 EU/dL (0.2 - 1)
[2023-09-19 12:53] LABS: BACTERIA,URINE 10-30 (MOD) /HPF (None Seen); SQUAMOUS EPITHELIAL CELL,UR 4-10 (MOD) /LPF (0-3 (FEW)); WBC,URINE 0-5 /HPF (0-5)
[2023-09-19] MEDS ORDERED: DICYCLOMINE HCL LIQUID 20 MG, ALUMINUM HYD/MAG/SIMETHICONE 30 ML, LIDOCAINE VISCOUS 2% ... PO ONE ×3 (12:55)
[2023-09-19] MEDS ORDERED: ALUMINUM HYD/MAG/SIMETHICONE 30 ML UDC ONE (13:35)
[2023-09-19] MEDS ORDERED: DICYCLOMINE HCL LIQUID 10 MG/5 ML UDC ONE (13:36)
[2023-09-19 13:45] LABS: BASOPHILS % (AUTO) 0.5 % (0.0-2.0); EOSINOPHILS # (AUTO) 0.3 K/uL (0-0.4); EOSINOPHILS % (AUTO) 3.6 % (0.0-4.0); HEMATOCRIT 46.7 % (36-48); HEMOGLOBIN 15.6 g/dL (12.0-16.0); LYMPHOCYTES # (AUTO) 3.3 K/uL (2.5-16.5); LYMPHOCYTES % (AUTO) 35.3 % (20.5-51.1); MEAN CORPUSCULAR HEMOGLOBIN 31 pg (27-31); MEAN CORPUSCULAR HGB CONC 34 g/dL (33-37); MEAN CORPUSCULAR VOLUME 92.1 fL (80-94); MONOCYTES # (AUTO) 0.8 K/uL (0.8-1.0); MONOCYTES % (AUTO) 8.4 % (1.7-9.3); NEUTROPHILS # (AUTO) 4.8 K/uL (1.8-7.7); NEUTROPHILS % (AUTO) 52.2 % (42.2-75.2); PLATELET COUNT (AUTO) 269 K/uL (140-450); RED BLOOD CELL COUNT(AUTO) 5.07 MIL/uL (4.20-5.40); WHITE BLOOD COUNT (AUTO) 9.2 K/uL (4.8-10.8)
[2023-09-19 13:57] LABS: CALCIUM 8.8 mg/dL (8.5-10.1); CARBON DIOXIDE 27.2 mmol/L (21-32); CREATININE 0.7 mg/dL (0.6-1.3); POTASSIUM 4.2 mmol/L (3.5-5.1)
[2023-09-19 14:07] LABS: ALBUMIN 3.1 g/dL (3.4-5.0); BILIRUBIN,DIRECT 0.1 mg/dL (0.0-0.3); TOTAL BILIRUBIN 0.6 mg/dL (0.0-1.0); TOTAL PROTEIN, SERUM 9.3 g/dL (6.4-8.2)
[2023-09-19] MEDS ORDERED: DOCU-299 PO (14:41)
[2023-09-19] MEDS ORDERED: POLY17PD72 PO (14:41)
== END 2023-09-19 14:39 | disposition home or self-care (01) ==
LOC: MED 11:51
DX: K59.00 Constipation, unspecified (principal); K76.0 Fatty (change of) liver, not elsewhere classified; R11.2 Nausea with vomiting, unspecified; Z90.49 Acquired absence of other specified parts of digestive tract; Z79.899 Other long term (current) drug therapy; Z79.1 Long term (current) use of non-steroidal anti-inflammatories (NSAID)
CPT/HCPCS: 36415; 80048; 80076; 81001; 81025; 85025; 87086; 99284

== ENCOUNTER 2023-12-29 17:00 | Emergency (ER) | payer MEDICAID ==
[~2023-12-29] VITALS: Ht 165.1 cm; Wt 115.2 kg
[~2023-12-29 17:00] MED LIST changes: +DOCU-299 PO; +POLY17PD72 PO
[2023-12-29 17:07] VITALS: BP 155/91; PULSE 88; RESP 18; TEMP 97.4; O2SAT 89
[2023-12-29] MEDS: ACETAMINOPHEN EXTRA STRENGTH 500 MG TAB PO ONE (18:16)
[2023-12-29] MEDS: KETOROLAC 30 MG/ML VIAL IM ONE (18:23)
[2023-12-29 18:46] LABS: BASOPHILS # (AUTO) 0.1 K/uL (0.00-0.22); BASOPHILS % (AUTO) 0.8 % (0.0-2.0); EOSINOPHILS # (AUTO) 0.3 K/uL (0-0.4); EOSINOPHILS % (AUTO) 2.9 % (0.0-4.0); HEMATOCRIT 42.8 % (36-48); HEMOGLOBIN 15.2 g/dL (12.0-16.0); LYMPHOCYTES # (AUTO) 3.4 K/uL (2.5-16.5); MEAN CORPUSCULAR HEMOGLOBIN 32 pg (27-31); MEAN CORPUSCULAR HGB CONC 36 g/dL (33-37); MEAN CORPUSCULAR VOLUME 89.4 fL (80-94); MONOCYTES # (AUTO) 0.7 K/uL (0.8-1.0); MONOCYTES % (AUTO) 7.4 % (1.7-9.3); NEUTROPHILS # (AUTO) 4.6 K/uL (1.8-7.7); NEUTROPHILS % (AUTO) 50.9 % (42.2-75.2); PLATELET COUNT (AUTO) 315 K/uL (140-450); RED BLOOD CELL COUNT(AUTO) 4.79 MIL/uL (4.20-5.40); RED CELL DISTRIBUTION WIDTH 12.7 % (11.6-13.7)
[2023-12-29 18:57] LABS: ANION GAP 14.1 (8-16); CALCIUM 8.6 mg/dL (8.5-10.1); CARBON DIOXIDE 23.8 mmol/L (21-32); CREATININE 0.8 mg/dL (0.6-1.3); POTASSIUM 3.9 mmol/L (3.5-5.1)
[2023-12-29 19:15] VITALS: BP 155/91; PULSE 88; RESP 18; TEMP 97.4; O2SAT 89
[2023-12-29 19:39] LABS: INR 0.96 (0.8-1.2); PARTIAL THROMBOPLASTIN TIME 23.4 secs (22-35.6); PROTHROMBIN TIME 10.1 secs (10.8-13.4)
== END 2023-12-29 19:45 | disposition home or self-care (01) ==
LOC: MED 17:00
DX: R51.9 Headache, unspecified (principal); M54.2 Cervicalgia; R07.9 Chest pain, unspecified; Z79.1 Long term (current) use of non-steroidal anti-inflammatories (NSAID); Z79.899 Other long term (current) drug therapy
CPT/HCPCS: 36415; 71045; 80048; 83880; 84484; 85025; 85610; 85730; 93005; 96372; 99285; J1885; 99283

== ENCOUNTER 2024-05-15 18:40 | Emergency (ER) | payer MEDICAID ==
[~2024-05-15] VITALS: Ht 165.1 cm; Wt 123.2 kg
[~2024-05-15 18:40] MED LIST changes: -ACET-10509 PO; +ACET500T99 PO
[2024-05-15 19:02] VITALS: BP 156/90; PULSE 89; RESP 17; TEMP 98.1; O2SAT 97
[2024-05-15 20:34] LABS: APPEARANCE,URINE CLEAR (CLEAR); BILIRUBIN,URINE NEGATIVE (NEGATIVE); BLOOD, URINE TRACE-I (NEGATIVE); COLOR,URINE YELLOW (YELLOW); LEUKOCYTE ESTERASE ,URINE NEGATIVE (NEGATIVE); NITRITE, URINE NEGATIVE (NEGATIVE); PROTEIN,URINE NEGATIVE (NEGATIVE); UGLUCOSE NEGATIVE (NEGATIVE); UROBILINOGEN,URINE 0.2 EU/dL (0.2 - 1)
[2024-05-15 20:45] LABS: SQUAMOUS EPITHELIAL CELL,UR 4-10 (MOD) /LPF (0-3 (FEW)); WBC,URINE 0-5 /HPF (0-5)
[2024-05-15 20:46] LABS: BACTERIA,URINE 10-30 (MOD) /HPF (None Seen)
[2024-05-15] MEDS ORDERED: NAPR-337 PO (21:20)
[2024-05-15] MEDS ORDERED: NITR100C7 PO (21:20)
== END 2024-05-15 21:22 | disposition home or self-care (01) ==
LOC: MED 18:40
DX: N39.0 Urinary tract infection, site not specified (principal); R03.0 Elevated blood-pressure reading, without diagnosis of hypertension; Z79.899 Other long term (current) drug therapy
CPT/HCPCS: 81001; 81025; 87086; 99283

== ENCOUNTER 2024-05-18 07:16 | Emergency (ER) | payer MEDICAID ==
[~2024-05-18] VITALS: Ht 162.6 cm; Wt 123.4 kg
[~2024-05-18 07:16] MED LIST changes: +NAPR-337 PO; +NITR100C7 PO
[2024-05-18 07:32] VITALS: BP 156/89; PULSE 73; RESP 14; TEMP 98.9; O2SAT 99
[2024-05-18] MEDS: KETOROLAC 60 MG/2 ML VIAL IM ONE (08:09)
[2024-05-18 08:20] LABS: APPEARANCE,URINE CLEAR (CLEAR); BILIRUBIN,URINE NEGATIVE (NEGATIVE); BLOOD, URINE TRACE-I (NEGATIVE); COLOR,URINE YELLOW (YELLOW); LEUKOCYTE ESTERASE ,URINE NEGATIVE (NEGATIVE); NITRITE, URINE NEGATIVE (NEGATIVE); PROTEIN,URINE NEGATIVE (NEGATIVE); UGLUCOSE NEGATIVE (NEGATIVE); UROBILINOGEN,URINE 0.2 EU/dL (0.2 - 1)
[2024-05-18 08:27] LABS: BACTERIA,URINE 10-30 (MOD) /HPF (None Seen); RBC,URINE 0-5 /HPF (0-5); SQUAMOUS EPITHELIAL CELL,UR 4-10 (MOD) /LPF (0-3 (FEW)); WBC,URINE 0-5 /HPF (0-5)
[2024-05-18] MEDS ORDERED: ONDA8TAB87 PO (08:55)
[2024-05-18 09:06] VITALS: BP 145/85; PULSE 75; RESP 14; TEMP 98.9; O2SAT 99
[2024-05-19] MEDS ORDERED: ACET500T99 PO (00:04)
== END 2024-05-18 09:06 | disposition home or self-care (01) ==
LOC: MED 07:16
DX: R51.9 Headache, unspecified (principal); R50.9 Fever, unspecified; R11.0 Nausea; Z79.899 Other long term (current) drug therapy; Z90.49 Acquired absence of other specified parts of digestive tract
CPT/HCPCS: 70450; 81001; 81025; 87086; 96372; 99285; J1885

== ENCOUNTER 2024-05-18 19:44 | Emergency (ER) | payer MEDICAID ==
[~2024-05-18] VITALS: Ht 162.6 cm; Wt 122.9 kg
[~2024-05-18 19:44] MED LIST changes: +ONDA8TAB87 PO
[2024-05-18 20:34] VITALS: BP 161/96; PULSE 72; RESP 18; TEMP 98.2; O2SAT 98
[2024-05-18] MEDS: KETOROLAC 30 MG/ML VIAL IM ONE (21:15)
[2024-05-18] MEDS: PROCHLORPERAZINE 10 MG/2 ML VIAL IM ONE (21:16)
[2024-05-18 21:30] VITALS: BP 161/96; PULSE 72; RESP 18; TEMP 98.2; O2SAT 98
[2024-05-19] MEDS ORDERED: ACET500T99 PO (00:04)
== END 2024-05-19 00:24 | disposition home or self-care (01) ==
LOC: MED 19:44
DX: G43.909 Migraine, unspecified, not intractable, without status migrainosus (principal); R11.2 Nausea with vomiting, unspecified; Z79.899 Other long term (current) drug therapy
CPT/HCPCS: 81025; 96372; 99284; J0780; J1885; Q0163

== ENCOUNTER 2024-05-20 23:05 | Emergency (ER) | payer MEDICAID ==
[~2024-05-20] VITALS: Ht 162.6 cm; Wt 122.9 kg
[2024-05-20 23:27] VITALS: BP 157/78; PULSE 66; RESP 20; TEMP 98.2; O2SAT 98
[2024-05-20 23:44] VITALS: BP 157/78
[2024-05-21 00:07] LABS: BASOPHILS % (AUTO) 0.4 % (0.0-2.0); EOSINOPHILS # (AUTO) 0.1 K/uL (0-0.4); EOSINOPHILS % (AUTO) 1.2 % (0.0-4.0); HEMATOCRIT 44.5 % (36-48); HEMOGLOBIN 15.2 g/dL (12.0-16.0); LYMPHOCYTES % (AUTO) 30.6 % (20.5-51.1); MEAN CORPUSCULAR HEMOGLOBIN 31 pg (27-31); MEAN CORPUSCULAR HGB CONC 34 g/dL (33-37); MEAN CORPUSCULAR VOLUME 89.7 fL (80-94); MONOCYTES # (AUTO) 0.8 K/uL (0.8-1.0); MONOCYTES % (AUTO) 7.9 % (1.7-9.3); NEUTROPHILS % (AUTO) 59.9 % (42.2-75.2); PLATELET COUNT (AUTO) 302 K/uL (140-450); RED BLOOD CELL COUNT(AUTO) 4.97 MIL/uL (4.20-5.40); RED CELL DISTRIBUTION WIDTH 12.7 % (11.6-13.7)
[2024-05-21] MEDS: NACL 0.9% 1,000 ML IV ONE (00:14)
[2024-05-21] MEDS: diphenhydrAMINE 50 MG/ML VIAL IVP ONE (00:15)
[2024-05-21] MEDS: PROCHLORPERAZINE 10 MG/2 ML VIAL IVP ONE (00:16)
[2024-05-21] MEDS: ACETAMINOPHEN EXTRA STRENGTH 500 MG TAB PO ONE (00:18)
[2024-05-21 00:30] LABS: INR 1.04 (0.8-1.2); PARTIAL THROMBOPLASTIN TIME 22.2 secs (22-35.6); PROTHROMBIN TIME 10.9 secs (10.8-13.4)
[2024-05-21 00:40] LABS: ALBUMIN 3.3 g/dL (3.4-5.0); ANION GAP 11.1 (8-16); CALCIUM 8.8 mg/dL (8.5-10.1); CARBON DIOXIDE 26.6 mmol/L (21-32); CREATININE 0.9 mg/dL (0.6-1.3); POTASSIUM 3.7 mmol/L (3.5-5.1); THYROID STIMULATING HORMONE 1.92 uIU/mL (0.34-3.74); TOTAL BILIRUBIN 0.8 mg/dL (0.0-1.0); TOTAL PROTEIN, SERUM 8.3 g/dL (6.4-8.2)
[2024-05-21 01:12] LABS: FLU A ANTIGEN negative (NEGATIVE); FLU B ANTIGEN NEGATIVE (NEGATIVE)
[2024-05-21] MEDS ORDERED: PROC-87 PO (02:14)
[2024-05-21] MEDS ORDERED: HYDR25CA1 PO (02:14)
[2024-05-21] MEDS ORDERED: IBUP-2213 PO (02:14)
[2024-05-21 02:41] VITALS: PULSE 68; RESP 20; TEMP 98.2; O2SAT 98
== END 2024-05-21 02:41 | disposition home or self-care (01) ==
LOC: MED 23:05
DX: G43.909 Migraine, unspecified, not intractable, without status migrainosus (principal); U07.1 COVID-19; Z79.899 Other long term (current) drug therapy
CPT/HCPCS: 36415; 70460; 80053; 81025; 84443; 85025; 85610; 85730; 87426; 87804; 96361; 96374; 96375; 99285; J0780; J1200; J7030; Q9967